=== PATIENT | female | born 1985 ===

== ENCOUNTER 2017-04-09 09:19 | Emergency (ER) | payer MEDICAID, OTHER ==
[2017-04-09 09:32] VITALS: BP 122/65; TEMP 97; O2SAT 100
[2017-04-09 09:50] VITALS: PULSE 16; RESP 60
--- NOTE | 2017-04-09 09:58 | ED PDOC ---
HPI: Eye Injury/Pain Time Seen by Provider: 04/09/17 09:43 Chief Complaint (Nursing): ENT Problem Chief Complaint (Provider): Eye Problem History Per: Patient History/Exam Limitations: no limitations Onset/Duration Of Symptoms: Days (x2) Current Symptoms Are (Timing): Still Present Additional Complaint(s): Susana Crowley is a 31 year old female presenting to the ED for an evaluation of a 2 day history of swelling and redness to her left upper eyelid. The patient states she experiences crusting in the morning. She denies any changes in vision , fever, or headache. Of note, the patient does not wear contact lenses. PMD: None provided Past Medical History Reviewed: Historical Data, Nursing Documentation, Vital Signs Vital Signs: Last Vital Signs Temp 97 F L 04/09/17 09:46 Pulse 16 L 04/09/17 09:46 Resp 60 H 04/09/17 09:46 BP 122/65 04/09/17 09:46 Pulse Ox 100 04/09/17 09:46 - Family History Family History: States: Unknown Family Hx - Home Medications Home Medications: Ambulatory Orders Medication Instructions Recorded Sulfamethoxazole/Trimethoprim 1 tab PO BID #20 tab 04/09/17 [Bactrim DS 800 mg-160 mg] Tobramycin 0.3% [Tobramycin 5 Ml] 1 drop OP TID #1 bottle 04/09/17 - Allergies Allergies/Adverse Reactions: Allergies Allergy/AdvReac Type Severity Reaction Status Date / Time No Known Allergies Allergy Verified 04/09/17 09:50 Review of Systems ROS Statement: Except As Marked, All Systems Reviewed And Found Negative Constitutional: Negative for: Fever Eyes: Positive for: Redness (swelling and redness to left upper eyelid ), Other (crusting in left eye). Negative for: Vision Change Neurological: Negative for: Headache Physical Exam - Reviewed Nursing Documentation Reviewed: Yes Vital Signs Reviewed: Yes - Physical Exam Appears: Positive for: Well, Non-toxic, No Acute Distress Head Exam: Positive for: ATRAUMATIC, NORMAL INSPECTION, NORMOCEPHALIC Skin: Positive for: Normal Color, Warm, Dry Eye Exam: Positive for: EOMI, PERRL (PERRL-A), Conjunctival injection, Scleral icterus, Other (mild erythema and swelling to left eye; no drainage to left eye ) ENT: Positive for: Normal ENT Inspection Neck: Positive for: Normal, Painless ROM Cardiovascular/Chest: Positive for: Regular Rate, Rhythm, Chest Non Tender Respiratory: Positive for: Normal Breath Sounds. Negative for: Respiratory Distress Gastrointestinal/Abdominal: Positive for: Normal Exam, Bowel Sounds, Soft. Negative for: Tenderness Back: Positive for: Normal Inspection Extremity: Positive for: Normal ROM Neurologic/Psych: Positive for: Alert (x3), Oriented. Negative for: Motor/ Sensory Deficits - ECG O2 Sat by Pulse Oximetry: 100 (RA) Pulse Ox Interpretation: Normal Medical Decision Making Medical Decision Making: Time: 09:43 Impression: Swelling and redness to left upper eyelid Plan: Scribe Attestation: Documented by Alberta Guerra, acting as a scribe for Vicne Zhang MD. Provider Scribe Attestation: All medical record entries made by the Scribe were at my direction and personally dictated by me. I have reviewed the chart and agree that the record accurately reflects my personal performance of the history, physical exam, medical decision making, and the department course for this patient. I have also personally directed, reviewed, and agree with the discharge instructions and disposition. Disposition - Clinical Impression Clinical Impression: Stye - Patient ED Disposition Is Patient to be Admitted: No - Disposition Referrals: Gary Buenrostro MD [Staff Provider] - Disposition: Routine/Home Disposition Time: 10:00 Condition: FAIR Prescriptions: Sulfamethoxazole/Trimethoprim [Bactrim DS 800 mg-160 mg] 1 tab PO BID #20 tab Tobramycin 0.3% [Tobramycin 5 Ml] 1 drop OP TID #1 bottle Instructions: Stye (ED) Forms: [employer] (Welsh)
== END 2017-04-09 10:18 | disposition home or self-care (01) ==
LOC: H.ER 09:19
DX: H00.012 Hordeolum externum right lower eyelid (principal)